=== PATIENT | female | born 1940 | race Caucasian/White ===

== ENCOUNTER 2017-01-09 14:43 | Inpatient (IN) | payer OTHER ==
[~2017-01-09] VITALS: Ht 149.9 cm; Wt 52.0 kg
[2017-01-09 15:27] LABS: HEMATOCRIT 46.1 % (36.0-46.0); MCH 29.1 PG (29.0-34.0); MCHC 34.1 G/DL (30.0-36.0); MCV 85.4 FL (83-99); MEAN PLAT.VOLUME 10.7 uM^3 (9.5-12.4); PLATELET COUNT 241 K/uL (156-360); RBC DIS.WIDTH-CV 13.1 % (11.8-14.6); RBC DIS.WIDTH-SD 40.7 % (39-53); WHITE BLOOD COUNT 16.5 K/uL (4.1-10.2)
[2017-01-09 15:45] LABS: CHLORIDE 101 mEq/L (99-109); POTASSIUM 4.5 mEq/L (3.7-5.4); SODIUM 139 mEq/L (136-147)
[2017-01-09 15:47] LABS: GLUCOSE 137 mg/dL (70-99)
[2017-01-09 15:48] LABS: ANION GAP 15 MEQ/L (2-14)
[2017-01-09 15:51] LABS: GFR ESTIMATE (CALCULATED) 57 mL/min/; UREA NITROGEN (BUN) 17 mg/dL (9-23)
[2017-01-09 18:22] LABS: TROP-I INTERPRETATION NEGATIVE; TROPONIN-I 0.04 ng/mL (0.0-0.30)
[2017-01-09] MEDS ORDERED: ADVAIR HFA120 INHAL1 IH (20:36)
[2017-01-09] MEDS ORDERED: LISINOPRIL40 MG PO (20:36)
[2017-01-09] MEDS ORDERED: PROAIR RESPICL90 MCG IH (20:36)
[2017-01-09] MEDS ORDERED: FUROSEMIDE20 MG PO (20:36)
[2017-01-09] MEDS ORDERED: SIMVASTATIN80 MG PO (20:36)
[2017-01-09] MEDS ORDERED: SPIRIVA RESPIMAT4 GM IH (20:36)
[2017-01-09] MEDS ORDERED: LO-DOSE ASPIRIN81 M2 PO (20:37)
[2017-01-09] MEDS ORDERED: METFORMIN HCL500 M1 PO (20:37)
[2017-01-09 20:49] LABS: TOTAL BILIRUBIN 0.7 mg/dL (0.0-1.0)
[2017-01-09 20:50] LABS: ALKALINE PHOSPHATASE 74 IU/L (3-129)
[2017-01-09 20:51] LABS: CARBON DIOXIDE (BICARBONATE) 27.1 MEQ/L (20-31)
[2017-01-09 20:52] LABS: DIRECT BILIRUBIN 0.3 mg/dL (0.0-0.3)
[2017-01-09 23:20] VITALS: BP 100/63
[2017-01-10 04:11] VITALS: BP 102/56
[2017-01-10 04:39] LABS: ADD MIUA? YES; BILIRUBIN NEGATIVE; BLOOD SMALL; COLOR STRAW ((YELLOW)); GLUCOSE (STRIP) NEGATIVE; KETONES NEGATIVE; LEUKOCYTES TRACE; NITRITE NEGATIVE; PROTEIN (STRIP) NEGATIVE; SPECIFIC GRAVITY 1.005 (1.000-1.030); UROBILINOGEN 0.2 MG/DL (0.2-1.0)
[2017-01-10 04:56] LABS: BACTERIA NONE SEEN /HPF; EPITHELIAL CELLS RARE /HPF; MUCUS NONE SEEN /LPF; RED BLOOD CELLS 0-5 /HPF (0-5); UCUL ADDED? NO; WHITE BLOOD CELLS 0-5 /HPF (0-5)
[2017-01-10 08:09] VITALS: BP 113/67
[2017-01-10 12:43] VITALS: BP 101/58
[2017-01-10 16:13] VITALS: BP 99/55
[2017-01-10 21:41] VITALS: BP 103/56
[2017-01-11 00:10] VITALS: BP 114/52
[2017-01-11 04:20] VITALS: BP 90/52
[2017-01-11 06:14] LABS: ANION GAP 9 MEQ/L (2-14); CHLORIDE 100 MEQ/L (99-109); GFR ESTIMATE (CALCULATED) > 59 mL/min/; GLUCOSE 103 mg/dL (70-99); SAMPLE HEMOLYSIS CHECK 0; SAMPLE ICTERIC CHECK 0; SAMPLE LIPEMIA CHECK 0; SODIUM 136 MEQ/L (136-147); UREA NITROGEN (BUN) 26 mg/dL (9-23)
[2017-01-11 06:22] LABS: HEMATOCRIT 40.6 % (36.0-46.0); MCH 29.1 PG (29.0-34.0); MCHC 33.7 G/DL (30.0-36.0); MCV 86.4 FL (83-99); MEAN PLAT.VOLUME 11.4 uM^3 (9.5-12.4); PLATELET COUNT 204 K/uL (156-360); RBC DIS.WIDTH-CV 13.2 % (11.8-14.6); RBC DIS.WIDTH-SD 41.5 % (39-53)
[2017-01-11 07:54] VITALS: BP 113/52
[2017-01-11 08:09] LABS: POINT-OF-CARE METER ID UU13113698
[2017-01-11 12:48] VITALS: BP 95/53
[2017-01-11 20:20] VITALS: BP 101/60
[2017-01-11 21:46] LABS: POINT-OF-CARE METER ID UU13113698
[2017-01-11 23:15] VITALS: BP 102/56
[2017-01-12 04:24] VITALS: BP 101/57
[2017-01-12 07:12] VITALS: BP 137/62
[2017-01-12 08:27] LABS: POINT-OF-CARE METER ID UU13113698
[2017-01-12 12:07] LABS: POINT-OF-CARE METER ID UU13113698
[2017-01-12 12:41] VITALS: BP 103/53
[2017-01-12 16:23] VITALS: BP 96/54
[2017-01-12 17:04] LABS: POINT-OF-CARE METER ID UU13113698
[2017-01-12 19:11] VITALS: BP 87/51
[2017-01-12 23:23] VITALS: BP 92/67
[2017-01-13 03:37] VITALS: BP 110/61
[2017-01-13 05:50] LABS: EOSINOPHIL (%) 0.2 % (0-5); HEMATOCRIT 40.1 % (36.0-46.0); IMMATURE GRANULOCYTE (%) 0.5 % (0.0-0.7); IMMATURE GRANULOCYTE COUNT 0.1 K/uL; INSTRUMENT ABS NEUTROPHIL CT 6.5 K/uL; LYMPHOCYTE COUNT 2.2 K/uL (1.0-2.8); MCHC 33.4 G/DL (30.0-36.0); MCV 86.8 FL (83-99); MONOCYTE (%) 10.3 % (3-12); NEUTROPHIL (%) 66.6 % (45-76); NEUTROPHIL COUNT 6.5 K/uL (1.8-6.4); RBC DIS.WIDTH-CV 13.2 % (11.8-14.6); RBC DIS.WIDTH-SD 41.5 % (39-53); RED BLOOD COUNT 4.62 M/uL (3.80-5.20); WHITE BLOOD COUNT 9.8 K/uL (4.1-10.2)
[2017-01-13 06:04] LABS: ANION GAP 7 MEQ/L (2-14); CHLORIDE 102 MEQ/L (99-109); POTASSIUM 4.6 MEQ/L (3.7-5.4); SAMPLE HEMOLYSIS CHECK 0; SAMPLE ICTERIC CHECK 0; SAMPLE LIPEMIA CHECK 0; SODIUM 138 MEQ/L (136-147)
[2017-01-13 06:10] LABS: GFR ESTIMATE (CALCULATED) > 59 mL/min/; GLUCOSE 96 mg/dL (70-99); UREA NITROGEN (BUN) 31 mg/dL (9-23)
[2017-01-13 07:30] VITALS: BP 110/60
[2017-01-13 08:11] LABS: MEAN PLAT.VOLUME 11.9 uM^3 (9.5-12.4); PLAT.SUFFICIENCY ADEQUATE; PLATELET COUNT 195 K/uL (156-360)
[2017-01-13 11:01] LABS: POINT-OF-CARE METER ID UU13113698
[2017-01-13] MEDS ORDERED: CEFTIN500 MG PO (14:33)
[2017-01-13] MEDS ORDERED: NICORELIEF2 MG BC (14:34)
[2017-01-13] MEDS ORDERED: CARVEDILOL3.125 MG PO (14:34)
[2017-01-13] MEDS ORDERED: KLOR-CON M1010 MEQ PO (14:34)
[2017-01-13] MEDS ORDERED: PREDNISONE20 MG PO (14:40)
[2017-01-13] MEDS ORDERED: OXYGEN MC (16:05)
[2017-01-13 16:10] VITALS: BP 110/62
== END 2017-01-13 17:13 | disposition home health service (06) | DRG 291 ==
LOC: EME 14:43 → RME 14:43 → EDOF 20:31 → 4EAST 20:31 → ENPENDDIS 01-13 → 4EAST 01-13 17:13
PROVIDERS: Emergency Medicine; Hospitalist; Internal Medicine; Physician Assistant Medical
DX: I11.0 Hypertensive heart disease with heart failure (principal); I50.9 Heart failure, unspecified; J96.01 Acute respiratory failure with hypoxia; J44.1 Chronic obstructive pulmonary disease with (acute) exacerbation; I42.9 Cardiomyopathy, unspecified; R91.1 Solitary pulmonary nodule; K63.9 Disease of intestine, unspecified; E78.5 Hyperlipidemia, unspecified; E11.9 Type 2 diabetes mellitus without complications; D72.829 Elevated white blood cell count, unspecified; T38.0X5A Adverse effect of glucocorticoids and synthetic analogues, initial encounter; I73.9 Peripheral vascular disease, unspecified; E83.119 Hemochromatosis, unspecified; R32 Unspecified urinary incontinence; M19.90 Unspecified osteoarthritis, unspecified site; F17.210 Nicotine dependence, cigarettes, uncomplicated; Z79.82 Long term (current) use of aspirin; Z79.84 Long term (current) use of oral hypoglycemic drugs
CPT/HCPCS: 71020; 71250; 74176; 80048; 80076; 81003; 82803; 82948; 83605; 83735; 83880; 84484; 85025; 85027; 85379; 87040; 93005; 93306; 94640; 94640 76; 94799; 99202; 99281; 99285; J0696; J1650; J1815; J1940; J7040; J7050; J7512

== ENCOUNTER 2017-03-31 01:52 | Inpatient (IN) | payer OTHER ==
[~2017-03-31] VITALS: Ht 160 cm; Wt 53.9 kg
[2017-03-31] VITALS (19 sets, daily range): BP systolic 0–119; BP diastolic 0–70
[~2017-03-31 01:52] MED LIST: ADVAIR HFA120 INHAL1 IH; CARVEDILOL3.125 MG PO; CEFTIN500 MG PO; FUROSEMIDE20 MG PO; KLOR-CON M1010 MEQ PO; LISINOPRIL40 MG PO; LO-DOSE ASPIRIN81 M2 PO; METFORMIN HCL500 M1 PO; NICORELIEF2 MG BC; OXYGEN MC; PREDNISONE20 MG PO; PROAIR RESPICL90 MCG IH; SIMVASTATIN80 MG PO; SPIRIVA RESPIMAT4 GM IH
[2017-03-31 02:41] LABS: BASE EXCESS -2.5 mEq/L (-3 to +3); BICARBONATE 26.8 mEq/L (22-26); CARBOXY HGB 2.2 % (0-5); METHEMOGLOBIN 1.1 % (0-1.5); PCO2 67 mm Hg (35-45); PO2 80 mm Hg (80-100)
[2017-03-31 02:42] LABS: BASOPHIL COUNT 0.1 K/uL (0-0.1); EOSINOPHIL (%) 0.4 % (0-5); EOSINOPHIL COUNT 0.1 K/uL (0-0.3); HEMATOCRIT 39.3 % (36.0-46.0); IMMATURE GRANULOCYTE (%) 1.3 % (0.0-0.7); IMMATURE GRANULOCYTE COUNT 0.2 K/uL; INSTRUMENT ABS NEUTROPHIL CT 11.2 K/uL; LYMPHOCYTE COUNT 1.4 K/uL (1.0-2.8); MCHC 31.8 G/DL (30.0-36.0); MCV 88.1 FL (83-99); MONOCYTE (%) 5.7 % (3-12); MONOCYTE COUNT 0.8 K/uL (0-0.8); NEUTROPHIL COUNT 11.2 K/uL (1.8-6.4); RBC DIS.WIDTH-CV 13.2 % (11.8-14.6); RBC DIS.WIDTH-SD 42.8 % (39-53); RED BLOOD COUNT 4.46 M/uL (3.80-5.20); WHITE BLOOD COUNT 13.7 K/uL (4.1-10.2)
[2017-03-31 02:42] LABS: COMMENTS - BLOOD GASES C+; DEVICE VENT; FI02 60 %; MECHANICAL RATE 14 resp/min; MODE AC; PEEP 5 CM/H20; SITE LR; TIDAL VOLUME 400 ML; TOTAL RESP RATE 14 resp/min; pH 7.21 (7.35-7.45)
[2017-03-31 02:53] LABS: CHLORIDE 104 mEq/L (99-109); POTASSIUM 4.5 mEq/L (3.7-5.4); SODIUM 137 mEq/L (136-147)
[2017-03-31 02:55] LABS: GLUCOSE 356 mg/dL (70-99)
[2017-03-31 02:57] LABS: ANION GAP 9 MEQ/L (2-14)
[2017-03-31 02:59] LABS: GFR ESTIMATE (CALCULATED) 46 mL/min/
[2017-03-31 03:00] LABS: UREA NITROGEN (BUN) 33 mg/dL (9-23)
[2017-03-31 03:07] LABS: TROP-I INTERPRETATION NEGATIVE; TROPONIN-I 0.06 ng/mL (0.0-0.30)
[2017-03-31 03:26] LABS: MEAN PLAT.VOLUME 10.9 uM^3 (9.5-12.4); PLAT.SUFFICIENCY ADEQUATE; PLATELET COUNT 162 K/uL (156-360)
[2017-03-31 03:30] LABS: BASE EXCESS 0.3 mEq/L (-3 to +3); BICARBONATE 27.6 mEq/L (22-26); CARBOXY HGB 3.3 % (0-5); METHEMOGLOBIN 0.5 % (0-1.5); PCO2 56 mm Hg (35-45); PO2 69 mm Hg (80-100)
[2017-03-31 03:31] LABS: COMMENTS - BLOOD GASES C+; DEVICE VENT; FI02 60 %; MECHANICAL RATE 20 resp/min; MODE AC; PEEP 5 CM/H20; SITE LR; TIDAL VOLUME 400 ML; TOTAL RESP RATE 20 resp/min
[2017-03-31 04:44] LABS: BASE EXCESS 1.5 mEq/L (-3 to +3); BICARBONATE 26.6 mEq/L (22-26); CARBOXY HGB 2.6 % (0-5); METHEMOGLOBIN 0.6 % (0-1.5); PO2 72 mm Hg (80-100)
[2017-03-31 04:45] LABS: COMMENTS - BLOOD GASES C+; DEVICE VENT; FI02 60 %; MECHANICAL RATE 20 resp/min; MODE AC; PCO2 43 mm Hg (35-45); PEEP 5 CM/H20; SITE RR; TIDAL VOLUME 450 ML; TOTAL RESP RATE 20 resp/min
[2017-03-31 05:08] LABS: POINT-OF-CARE METER ID UU13113747
[2017-03-31 07:10] LABS: METH RESISTANT S AUREUS PCR NEGATIVE (NEGATIVE)
[2017-03-31 07:28] LABS: PROBE CHECK PASS; SPECIMEN PROCESSING CONTROL PASS
[2017-03-31 12:20] LABS: POINT-OF-CARE METER ID UU14314083
[2017-03-31 16:31] LABS: MAGNESIUM 1.6 mg/dl (1.3-2.7)
[2017-03-31 19:12] LABS: POINT-OF-CARE METER ID UU14314083
[2017-04-01] VITALS (24 sets, daily range): BP systolic 76–135; BP diastolic 41–93
[2017-04-01 00:52] LABS: POINT-OF-CARE METER ID UU13113731
[2017-04-01 06:29] LABS: POINT-OF-CARE METER ID UU14314082
[2017-04-01 08:11] LABS: MCH 28.6 PG (29.0-34.0); MCHC 33.6 G/DL (30.0-36.0); MCV 85.1 FL (83-99); MEAN PLAT.VOLUME 11.1 uM^3 (9.5-12.4); PLATELET COUNT 171 K/uL (156-360); RBC DIS.WIDTH-CV 13.8 % (11.8-14.6); RBC DIS.WIDTH-SD 42.6 % (39-53); RED BLOOD COUNT 3.88 M/uL (3.80-5.20); WHITE BLOOD COUNT 6.1 K/uL (4.1-10.2)
[2017-04-01 08:30] LABS: ANION GAP 14 MEQ/L (2-14); CHLORIDE 102 MEQ/L (99-109); SAMPLE HEMOLYSIS CHECK 0; SAMPLE ICTERIC CHECK 0; SAMPLE LIPEMIA CHECK 0; SODIUM 137 MEQ/L (136-147)
[2017-04-01 08:32] LABS: POTASSIUM 3.4 MEQ/L (3.7-5.4)
[2017-04-01 08:35] LABS: GFR ESTIMATE (CALCULATED) 24 mL/min/; GLUCOSE 301 mg/dL (70-99); UREA NITROGEN (BUN) 48 mg/dL (9-23)
[2017-04-01 12:31] LABS: POINT-OF-CARE METER ID UU14314082
[2017-04-01 15:23] LABS: ADD MIUA? YES; BILIRUBIN NEGATIVE; BLOOD MODERATE; COLOR YELLOW ((YELLOW)); GLUCOSE (STRIP) NEGATIVE; KETONES NEGATIVE; LEUKOCYTES NEGATIVE; NITRITE NEGATIVE; PROTEIN (STRIP) NEGATIVE; SPECIFIC GRAVITY 1.016 (1.000-1.030); UROBILINOGEN 0.2 MG/DL (0.2-1.0)
[2017-04-01 16:14] LABS: BACTERIA RARE /HPF; EPITHELIAL CELLS RARE /HPF; HYALINE CASTS 15-20 /LPF; MUCUS TRACE /LPF; RED BLOOD CELLS TNTC /HPF (0-5); URIC ACID CRYSTALS 2+ /HPF; WHITE BLOOD CELLS 0-5 /HPF (0-5)
[2017-04-01 17:50] LABS: POINT-OF-CARE METER ID UU14314082
[2017-04-02] VITALS (14 sets, daily range): BP systolic 103–138; BP diastolic 49–85
[2017-04-02 00:33] LABS: POINT-OF-CARE METER ID UU13113803
[2017-04-02 05:53] LABS: POINT-OF-CARE METER ID UU14314082
[2017-04-02 07:30] LABS: HEMATOCRIT 35.2 % (36.0-46.0); MCH 28.9 PG (29.0-34.0); MCV 87.6 FL (83-99); PLATELET COUNT 203 K/uL (156-360); RBC DIS.WIDTH-CV 14.2 % (11.8-14.6); RBC DIS.WIDTH-SD 45.3 % (39-53); RED BLOOD COUNT 4.02 M/uL (3.80-5.20); WHITE BLOOD COUNT 9.4 K/uL (4.1-10.2)
[2017-04-02 08:06] LABS: ANION GAP 15 MEQ/L (2-14); CHLORIDE 105 MEQ/L (99-109); GFR ESTIMATE (CALCULATED) 23 mL/min/; GLUCOSE 205 mg/dL (70-99); SAMPLE HEMOLYSIS CHECK 0; SAMPLE ICTERIC CHECK 0; SAMPLE LIPEMIA CHECK 0; SODIUM 141 MEQ/L (136-147); UREA NITROGEN (BUN) 55 mg/dL (9-23)
[2017-04-02 08:08] LABS: POTASSIUM 4.2 MEQ/L (3.7-5.4)
[2017-04-02 13:07] LABS: POINT-OF-CARE METER ID UU14314082
[2017-04-02 17:28] LABS: POINT-OF-CARE METER ID UU14314082
[2017-04-03] VITALS: BP 124/76
[2017-04-03 08:00] VITALS: BP 136/84
[2017-04-03 09:02] LABS: POINT-OF-CARE METER ID UU14314082
[2017-04-03 09:06] LABS: HEMATOCRIT 39.9 % (36.0-46.0); MCH 27.6 PG (29.0-34.0); MCHC 31.6 G/DL (30.0-36.0); MCV 87.3 FL (83-99); MEAN PLAT.VOLUME 11.1 uM^3 (9.5-12.4); PLATELET COUNT 250 K/uL (156-360); RBC DIS.WIDTH-CV 14.1 % (11.8-14.6); RBC DIS.WIDTH-SD 45.3 % (39-53); RED BLOOD COUNT 4.57 M/uL (3.80-5.20); WHITE BLOOD COUNT 8.8 K/uL (4.1-10.2)
[2017-04-03 09:47] LABS: ANION GAP 13 MEQ/L (2-14); CHLORIDE 106 MEQ/L (99-109); GFR ESTIMATE (CALCULATED) 36 mL/min/; GLUCOSE 254 mg/dL (70-99); POTASSIUM 4.7 MEQ/L (3.7-5.4); SAMPLE HEMOLYSIS CHECK 0; SAMPLE ICTERIC CHECK 0; SAMPLE LIPEMIA CHECK 0; SODIUM 143 MEQ/L (136-147); UREA NITROGEN (BUN) 56 mg/dL (9-23)
[2017-04-03 12:00] VITALS: BP 132/80
[2017-04-03 12:49] LABS: POINT-OF-CARE METER ID UU14314082
[2017-04-03 16:00] VITALS: BP 143/89
[2017-04-03 17:47] LABS: POINT-OF-CARE METER ID UU14314082
[2017-04-03 20:00] VITALS: BP 127/80
[2017-04-03 22:06] LABS: POINT-OF-CARE METER ID UU14314082
[2017-04-04] VITALS (9 sets, daily range): BP systolic 101–137; BP diastolic 53–83
[2017-04-04 05:01] LABS: EOSINOPHIL (%) 0 % (0-5); HEMATOCRIT 37.6 % (36.0-46.0); IMMATURE GRANULOCYTE (%) 0.7 % (0.0-0.7); IMMATURE GRANULOCYTE COUNT 0.1 K/uL; INSTRUMENT ABS NEUTROPHIL CT 6.1 K/uL; LYMPHOCYTE COUNT 0.6 K/uL (1.0-2.8); MCHC 32.2 G/DL (30.0-36.0); MEAN PLAT.VOLUME 11.2 uM^3 (9.5-12.4); MONOCYTE (%) 4.9 % (3-12); MONOCYTE COUNT 0.4 K/uL (0-0.8); NEUTROPHIL (%) 85.7 % (45-76); NEUTROPHIL COUNT 6.1 K/uL (1.8-6.4); PLATELET COUNT 218 K/uL (156-360); RBC DIS.WIDTH-CV 13.8 % (11.8-14.6); RBC DIS.WIDTH-SD 44.2 % (39-53); RED BLOOD COUNT 4.32 M/uL (3.80-5.20); WHITE BLOOD COUNT 7.2 K/uL (4.1-10.2)
[2017-04-04 05:14] LABS: CHLORIDE 106 mEq/L (99-109); POTASSIUM 4.8 mEq/L (3.7-5.4); SODIUM 143 mEq/L (136-147)
[2017-04-04 05:16] LABS: GLUCOSE 220 mg/dL (70-99)
[2017-04-04 05:17] LABS: ANION GAP 12 MEQ/L (2-14)
[2017-04-04 05:19] LABS: GFR ESTIMATE (CALCULATED) 39 mL/min/
[2017-04-04 05:20] LABS: UREA NITROGEN (BUN) 65 mg/dL (9-23)
[2017-04-04 13:10] LABS: POINT-OF-CARE METER ID UU13113748
[2017-04-04 16:48] LABS: POINT-OF-CARE METER ID UU14314082
[2017-04-04 18:36] LABS: POINT-OF-CARE METER ID UU13113774
[2017-04-04 21:22] LABS: POINT-OF-CARE METER ID UU13113725
[2017-04-05 02:34] VITALS: BP 90/55
[2017-04-05 06:01] LABS: POINT-OF-CARE METER ID UU13113725
[2017-04-05 07:44] VITALS: BP 105/58
[2017-04-05 09:11] LABS: ANION GAP 11 MEQ/L (2-14); CHLORIDE 99 MEQ/L (99-109); GFR ESTIMATE (CALCULATED) 51 mL/min/; GLUCOSE 225 mg/dL (70-99); POTASSIUM 4.1 MEQ/L (3.7-5.4); SAMPLE HEMOLYSIS CHECK 0; SAMPLE ICTERIC CHECK 0; SAMPLE LIPEMIA CHECK 0; SODIUM 142 MEQ/L (136-147); UREA NITROGEN (BUN) 53 mg/dL (9-23)
[2017-04-05 11:57] LABS: POINT-OF-CARE METER ID UU13113774
[2017-04-05 13:01] VITALS: BP 130/70
[2017-04-05 15:27] VITALS: BP 112/52
[2017-04-05 16:17] LABS: POINT-OF-CARE METER ID UU13113725
[2017-04-05 20:30] VITALS: BP 90/68
[2017-04-05 21:34] LABS: POINT-OF-CARE METER ID UU13113725
[2017-04-05 21:56] VITALS: BP 90/68
[2017-04-06] VITALS (9 sets, daily range): BP systolic 86–107; BP diastolic 45–65
[2017-04-06 06:23] LABS: POINT-OF-CARE METER ID UU13113774
[2017-04-06 11:07] LABS: ANION GAP 10 MEQ/L (2-14); CHLORIDE 95 MEQ/L (99-109); POTASSIUM 3.6 MEQ/L (3.7-5.4); SAMPLE HEMOLYSIS CHECK 0; SAMPLE ICTERIC CHECK 0; SAMPLE LIPEMIA CHECK 0; SODIUM 139 MEQ/L (136-147)
[2017-04-06 11:13] LABS: GFR ESTIMATE (CALCULATED) 57 mL/min/; GLUCOSE 291 mg/dL (70-99); UREA NITROGEN (BUN) 53 mg/dL (9-23)
[2017-04-06 11:49] LABS: POINT-OF-CARE METER ID UU13113725
[2017-04-06 15:42] LABS: MAGNESIUM 1.8 mg/dl (1.3-2.7); POTASSIUM 3.9 MEQ/L (3.7-5.4)
[2017-04-06 16:19] LABS: POINT-OF-CARE METER ID UU13113725
[2017-04-06 23:34] LABS: POINT-OF-CARE METER ID UU13113725
[2017-04-07 03:10] VITALS: BP 89/51
[2017-04-07 05:56] LABS: POINT-OF-CARE METER ID UU13113725
[2017-04-07 07:01] LABS: ANION GAP 11 MEQ/L (2-14); CHLORIDE 99 MEQ/L (99-109); GFR ESTIMATE (CALCULATED) > 59 mL/min/; GLUCOSE 224 mg/dL (70-99); POTASSIUM 3.6 MEQ/L (3.7-5.4); SAMPLE HEMOLYSIS CHECK 0; SAMPLE ICTERIC CHECK 0; SAMPLE LIPEMIA CHECK 0; SODIUM 140 MEQ/L (136-147); UREA NITROGEN (BUN) 49 mg/dL (9-23)
[2017-04-07 07:41] VITALS: BP 105/51
[2017-04-07] MEDS ORDERED: ASCORBIC ACID500 M3 PO (10:59)
[2017-04-07] MEDS ORDERED: ENTRESTO 24 MG1 EACH PO (10:59)
[2017-04-07] MEDS ORDERED: DUONEB 2.5-0.5 M3 ML AEROSOL ×2 (10:59→11:17)
[2017-04-07] MEDS ORDERED: VITAMIN D2000 UNI1 PO (10:59)
[2017-04-07] MEDS ORDERED: PREDNISONE10 MG PO (10:59)
[2017-04-07] MEDS ORDERED: AMOX TR-K CLV1 EAC3 PO (10:59)
[2017-04-07] MEDS ORDERED: THERAGRAN1 TABLET PO (10:59)
[2017-04-07 11:17] LABS: POINT-OF-CARE METER ID UU13113725
[2017-04-07 12:03] VITALS: BP 93/54
== END 2017-04-07 12:13 | disposition home or self-care (01) | DRG 208 ==
LOC: EME → EDBD 01:52 → EME 01:52 → 4WEST 04:24 → EDOF 04:24 → ENRESERV 04:26 → 4WEST 05:34 → CANRESERV 04-02 12:48 → ENRESERV 04-02 12:48 → 4WEST 04-02 13:03 → ENRESERV 04-04 13:52 → 5EAST 04-04 16:55
PROVIDERS: Emergency Medicine; Hospitalist; Internal Medicine Critical Care Medicine; Nurse Practitioner Family
DX: J96.22 Acute and chronic respiratory failure with hypercapnia (principal); N17.0 Acute kidney failure with tubular necrosis; J44.0 Chronic obstructive pulmonary disease with (acute) lower respiratory infection; I50.23 Acute on chronic systolic (congestive) heart failure; J18.9 Pneumonia, unspecified organism; J44.1 Chronic obstructive pulmonary disease with (acute) exacerbation; I42.0 Dilated cardiomyopathy; I73.9 Peripheral vascular disease, unspecified; E87.2 Acidosis; R60.0 Localized edema; Z99.81 Dependence on supplemental oxygen; E78.5 Hyperlipidemia, unspecified; R91.1 Solitary pulmonary nodule; Z79.4 Long term (current) use of insulin; F17.200 Nicotine dependence, unspecified, uncomplicated; K63.9 Disease of intestine, unspecified; E11.9 Type 2 diabetes mellitus without complications; I50.84 End stage heart failure; R26.9 Unspecified abnormalities of gait and mobility; J96.21 Acute and chronic respiratory failure with hypoxia; I25.5 Ischemic cardiomyopathy; E86.1 Hypovolemia; I11.0 Hypertensive heart disease with heart failure; I27.81 Cor pulmonale (chronic); I95.9 Hypotension, unspecified
CPT/HCPCS: 36600; 71010; 80048; 81003; 82306; 82803; 82948; 83605; 83735; 83880; 84100; 84132 91; 84484; 85025; 85027; 87040; 87070; 87205; 87641; 93005; 94002; 94003; 94640; 94640 76; 94644; 94760; 94799; 97530 GO; 99202; 99281; 99285; J0295; J0456; J1100; J1650; J1815; J1940; J1956; J2250; J2920; J7030; J7040; J7050; J7512

== ENCOUNTER 2017-05-09 18:00 | Emergency (ER) | payer OTHER ==
[~2017-05-09] VITALS: Ht 149.9 cm; Wt 51.3 kg
[~2017-05-09 18:00] MED LIST changes: +AMOX TR-K CLV1 EAC3 PO; +ASCORBIC ACID500 M3 PO; +DUONEB 2.5-0.5 M3 ML AEROSOL; +ENTRESTO 24 MG1 EACH PO; +PREDNISONE10 MG PO; +THERAGRAN1 TABLET PO; +VITAMIN D2000 UNI1 PO
[2017-05-09 19:06] LABS: HEMATOCRIT 39.8 % (36.0-46.0); MCHC 32.7 G/DL (30.0-36.0); MCV 85.6 FL (83-99); PLATELET COUNT 388 K/uL (156-360); RBC DIS.WIDTH-CV 13.5 % (11.8-14.6); RBC DIS.WIDTH-SD 41.9 % (39-53); RED BLOOD COUNT 4.65 M/uL (3.80-5.20); WHITE BLOOD COUNT 8.8 K/uL (4.1-10.2)
[2017-05-09 19:17] LABS: CHLORIDE 99 mEq/L (99-109); POTASSIUM 4.1 mEq/L (3.7-5.4); SODIUM 140 mEq/L (136-147)
[2017-05-09 19:18] LABS: GLUCOSE 253 mg/dL (70-99)
[2017-05-09 19:20] LABS: ANION GAP 14 MEQ/L (2-14)
[2017-05-09 19:22] LABS: GFR ESTIMATE (CALCULATED) 57 mL/min/
[2017-05-09 19:23] LABS: UREA NITROGEN (BUN) 19 mg/dL (9-23)
[2017-05-09 19:29] LABS: TROP-I INTERPRETATION NEGATIVE; TROPONIN-I 0.06 ng/mL (0.0-0.30)
[2017-05-09 20:57] LABS: Estimated Average Glucose 151 mg/dL (70-123); HEMOGLOBIN A1c (GLYCOHEMOGLOB) 6.9 % HGB (Below 5.7)
[2017-05-09] MEDS ORDERED: AUGMENTIN875 MG PO (21:22)
[2017-05-09] MEDS ORDERED: PREDNISONE20 MG PO (21:22)
[2017-05-09 22:31] VITALS: BP 108/70
== END 2017-05-09 22:31 | disposition home or self-care (01) ==
LOC: EME 18:00
DX: J44.1 Chronic obstructive pulmonary disease with (acute) exacerbation (principal); J20.9 Acute bronchitis, unspecified; J44.0 Chronic obstructive pulmonary disease with (acute) lower respiratory infection; I11.0 Hypertensive heart disease with heart failure; I50.9 Heart failure, unspecified; E11.9 Type 2 diabetes mellitus without complications; Z79.84 Long term (current) use of oral hypoglycemic drugs; E78.5 Hyperlipidemia, unspecified; Z87.891 Personal history of nicotine dependence; Z79.82 Long term (current) use of aspirin
CPT/HCPCS: 71020; 80048; 83036; 84484; 85027; 93005; 94640; 99281; 99284; J7512

== ENCOUNTER 2017-05-11 02:27 | Inpatient (IN) | payer OTHER ==
[~2017-05-11] VITALS: Ht 149.9 cm; Wt 53.2 kg
[2017-05-11] VITALS (19 sets, daily range): BP systolic 75–147; BP diastolic 50–121
[~2017-05-11 02:27] MED LIST changes: +AUGMENTIN875 MG PO
[2017-05-11 03:14] LABS: BASE EXCESS -4.1 mEq/L (-3 to +3); CARBOXY HGB 2.2 % (0-5); METHEMOGLOBIN 0.6 % (0-1.5); PCO2 50 mm Hg (35-45); PO2 84 mm Hg (80-100); SITE RR; pH 7.27 (7.35-7.45)
[2017-05-11 03:15] LABS: COMMENTS - BLOOD GASES A+C+; DEVICE MASK VENT; FI02 50 %; MODE SPONT; PEEP 5 CM/H20; PRES. SUPPORT 10 CM/H2O; TOTAL RESP RATE 24 resp/min
[2017-05-11 03:18] LABS: EOSINOPHIL (%) 0 % (0-5); HEMATOCRIT 37.9 % (36.0-46.0); IMMATURE GRANULOCYTE (%) 2.3 % (0.0-0.7); IMMATURE GRANULOCYTE COUNT 0.3 K/uL; INSTRUMENT ABS NEUTROPHIL CT 12.5 K/uL; LYMPHOCYTE COUNT 0.6 K/uL (1.0-2.8); MCH 27.7 PG (29.0-34.0); MCHC 31.4 G/DL (30.0-36.0); MCV 88.1 FL (83-99); MEAN PLAT.VOLUME 10.6 uM^3 (9.5-12.4); MONOCYTE (%) 3.9 % (3-12); MONOCYTE COUNT 0.6 K/uL (0-0.8); NEUTROPHIL (%) 89.4 % (45-76); NEUTROPHIL COUNT 12.5 K/uL (1.8-6.4); PLATELET COUNT 437 K/uL (156-360); RBC DIS.WIDTH-CV 13.4 % (11.8-14.6); RBC DIS.WIDTH-SD 43.7 % (39-53)
[2017-05-11 03:29] LABS: CHLORIDE 99 mEq/L (99-109); SODIUM 133 mEq/L (136-147)
[2017-05-11 03:32] LABS: ANION GAP 13 MEQ/L (2-14)
[2017-05-11 03:38] LABS: TROP-I INTERPRETATION NEGATIVE; TROPONIN-I 0.06 ng/mL (0.0-0.30)
[2017-05-11 03:43] LABS: GFR ESTIMATE (CALCULATED) 31 mL/min/; GLUCOSE 602 mg/dL (70-99); UREA NITROGEN (BUN) 46 mg/dL (9-23)
[2017-05-11 05:19] LABS: CREATININE 1.3 mg/dL (0.6-1.3); POTASSIUM 4.4 mEq/L (3.7-5.4)
[2017-05-11 08:02] LABS: POINT-OF-CARE METER ID UU14174217
[2017-05-11 08:50] LABS: METH RESISTANT S AUREUS PCR NEGATIVE (NEGATIVE)
[2017-05-11 08:51] LABS: PROBE CHECK PASS; SPECIMEN PROCESSING CONTROL PASS
[2017-05-11 10:58] LABS: POINT-OF-CARE METER ID UU13113747
[2017-05-11] MEDS ORDERED: FUROSEMIDE40 MG PO (11:46)
[2017-05-11 12:42] LABS: POINT-OF-CARE METER ID UU14174217; POINT-OF-CARE USER ID 612031313
[2017-05-11 18:15] LABS: POINT-OF-CARE METER ID UU14174217; POINT-OF-CARE USER ID 612031313
[2017-05-12] VITALS (23 sets, daily range): BP systolic 62–99; BP diastolic 41–68
[2017-05-12 00:26] LABS: POINT-OF-CARE METER ID UU13113748
[2017-05-12 06:01] LABS: POINT-OF-CARE METER ID UU14162636
[2017-05-12 10:58] LABS: HEMATOCRIT 35.8 % (36.0-46.0); MCH 28.3 PG (29.0-34.0); MCHC 31.8 G/DL (30.0-36.0); MCV 88.8 FL (83-99); MEAN PLAT.VOLUME 11.1 uM^3 (9.5-12.4); PLATELET COUNT 336 K/uL (156-360); RBC DIS.WIDTH-CV 13.8 % (11.8-14.6); RBC DIS.WIDTH-SD 44.8 % (39-53); RED BLOOD COUNT 4.03 M/uL (3.80-5.20)
[2017-05-12 11:25] LABS: ANION GAP 12 MEQ/L (2-14); CHLORIDE 102 MEQ/L (99-109); GFR ESTIMATE (CALCULATED) > 59 mL/min/; GLUCOSE 308 mg/dL (70-99); POTASSIUM 4.5 MEQ/L (3.7-5.4); SAMPLE HEMOLYSIS CHECK 0; SAMPLE ICTERIC CHECK 0; SAMPLE LIPEMIA CHECK 0; SODIUM 140 MEQ/L (136-147); UREA NITROGEN (BUN) 42 mg/dL (9-23)
[2017-05-12 12:04] LABS: POINT-OF-CARE METER ID UU13113803
[2017-05-12 17:36] LABS: POINT-OF-CARE METER ID UU14174217
[2017-05-12 23:58] LABS: POINT-OF-CARE METER ID UU14174217
[2017-05-13] VITALS (28 sets, daily range): BP systolic 0–107; BP diastolic 0–71
[2017-05-13 05:44] LABS: EOSINOPHIL (%) 0 % (0-5); HEMATOCRIT 37.2 % (36.0-46.0); IMMATURE GRANULOCYTE (%) 1.1 % (0.0-0.7); IMMATURE GRANULOCYTE COUNT 0.1 K/uL; INSTRUMENT ABS NEUTROPHIL CT 11.1 K/uL; LYMPHOCYTE COUNT 0.8 K/uL (1.0-2.8); MCH 27.6 PG (29.0-34.0); MCHC 31.7 G/DL (30.0-36.0); MCV 87.1 FL (83-99); MONOCYTE (%) 6.8 % (3-12); MONOCYTE COUNT 0.9 K/uL (0-0.8); NEUTROPHIL (%) 85.7 % (45-76); NEUTROPHIL COUNT 11.1 K/uL (1.8-6.4); PLATELET COUNT 345 K/uL (156-360); RBC DIS.WIDTH-CV 13.6 % (11.8-14.6); RBC DIS.WIDTH-SD 43.4 % (39-53); RED BLOOD COUNT 4.27 M/uL (3.80-5.20); WHITE BLOOD COUNT 12.9 K/uL (4.1-10.2)
[2017-05-13 05:52] LABS: POINT-OF-CARE METER ID UU14174217
[2017-05-13 06:56] LABS: ANION GAP 12 MEQ/L (2-14); CHLORIDE 104 MEQ/L (99-109); GFR ESTIMATE (CALCULATED) > 59 mL/min/; GLUCOSE 177 mg/dL (70-99); MAGNESIUM 1.9 mg/dl (1.3-2.7); POTASSIUM 4.1 MEQ/L (3.7-5.4); SAMPLE HEMOLYSIS CHECK 0; SAMPLE ICTERIC CHECK 0; SAMPLE LIPEMIA CHECK 0; SODIUM 141 MEQ/L (136-147); UREA NITROGEN (BUN) 41 mg/dL (9-23)
[2017-05-13 12:28] LABS: POINT-OF-CARE METER ID UU14174217
[2017-05-13 17:22] LABS: POINT-OF-CARE METER ID UU14314082
[2017-05-13 21:49] LABS: POINT-OF-CARE METER ID UU14208751
[2017-05-14] VITALS (23 sets, daily range): BP systolic 69–109; BP diastolic 44–75
[2017-05-14 06:41] LABS: HEMATOCRIT 36.7 % (36.0-46.0); MCHC 31.3 G/DL (30.0-36.0); MCV 86.2 FL (83-99); MEAN PLAT.VOLUME 10.7 uM^3 (9.5-12.4); PLATELET COUNT 389 K/uL (156-360); RBC DIS.WIDTH-CV 13.7 % (11.8-14.6); RBC DIS.WIDTH-SD 42.5 % (39-53); RED BLOOD COUNT 4.26 M/uL (3.80-5.20); WHITE BLOOD COUNT 10.6 K/uL (4.1-10.2)
[2017-05-14 07:06] LABS: ANION GAP 11 MEQ/L (2-14); CHLORIDE 99 MEQ/L (99-109); GFR ESTIMATE (CALCULATED) 51 mL/min/; GLUCOSE 299 mg/dL (70-99); POTASSIUM 3.9 MEQ/L (3.7-5.4); SAMPLE HEMOLYSIS CHECK 0; SAMPLE ICTERIC CHECK 0; SAMPLE LIPEMIA CHECK 0; SODIUM 138 MEQ/L (136-147); UREA NITROGEN (BUN) 43 mg/dL (9-23)
[2017-05-14 07:07] LABS: MAGNESIUM 2.2 mg/dl (1.3-2.7)
[2017-05-14 11:15] LABS: POINT-OF-CARE METER ID UU14314082
[2017-05-14 16:30] LABS: POINT-OF-CARE METER ID UU14174217
[2017-05-14 22:08] LABS: POINT-OF-CARE METER ID UU14174217
[2017-05-15] VITALS (12 sets, daily range): BP systolic 74–106; BP diastolic 52–78
[2017-05-15 08:49] LABS: POINT-OF-CARE METER ID UU14314083
[2017-05-15 11:12] LABS: POINT-OF-CARE METER ID UU14314083
[2017-05-15 15:56] LABS: PROTHROMBIN TIME 11.8 SEC (10.2-12.9)
[2017-05-15 18:09] LABS: POINT-OF-CARE METER ID UU14314083
[2017-05-15 21:57] LABS: POINT-OF-CARE METER ID UU14208751
[2017-05-16] VITALS (7 sets, daily range): BP systolic 91–123; BP diastolic 53–76
[2017-05-16 09:18] LABS: POINT-OF-CARE METER ID UU13113803
[2017-05-16 12:45] LABS: POINT-OF-CARE METER ID UU14208751
[2017-05-16 17:55] LABS: POINT-OF-CARE METER ID UU14188625
[2017-05-16 22:11] LABS: POINT-OF-CARE METER ID UU13113717
[2017-05-17] VITALS: BP 87/54
[2017-05-17 04:11] VITALS: BP 99/54
[2017-05-17 06:44] LABS: POINT-OF-CARE METER ID UU14174225
[2017-05-17 07:15] VITALS: BP 89/51
[2017-05-17 11:14] VITALS: BP 115/71
[2017-05-17] MEDS ORDERED: ELIQUIS5 MG PO (11:56)
[2017-05-17] MEDS ORDERED: CARVEDILOL3.125 MG PO (11:58)
[2017-05-17] MEDS ORDERED: PREDNISONE20 MG PO (12:04)
[2017-05-17] MEDS ORDERED: LEVAQUIN500 MG PO (12:07)
[2017-05-17 12:17] LABS: POINT-OF-CARE METER ID UU13113717
== END 2017-05-17 13:21 | disposition home health service (06) | DRG 189 ==
LOC: EME → EDBD 02:27 → EME 02:27 → EDOF 06:34 → 4WEST 06:34 → ENRESERV 06:36 → EDOF 06:53 → 4WEST 07:15 → ENRESERV 05-16 14:51 → 5SOUTH 05-16 16:29 → ENPENDDIS 05-17 → 5SOUTH 05-17 13:21
PROVIDERS: Emergency Medicine; Hospitalist; Internal Medicine Cardiovascular Disease; Internal Medicine Critical Care Medicine; Surgery
DX: J96.22 Acute and chronic respiratory failure with hypercapnia (principal); J44.1 Chronic obstructive pulmonary disease with (acute) exacerbation; J44.0 Chronic obstructive pulmonary disease with (acute) lower respiratory infection; J20.9 Acute bronchitis, unspecified; I13.0 Hypertensive heart and chronic kidney disease with heart failure and stage 1 through stage 4 chronic kidney disease, or unspecified chronic kidney disease; I50.23 Acute on chronic systolic (congestive) heart failure; N18.9 Chronic kidney disease, unspecified; I95.89 Other hypotension; R91.8 Other nonspecific abnormal finding of lung field; I08.1 Rheumatic disorders of both mitral and tricuspid valves; I27.20 Pulmonary hypertension, unspecified; I25.5 Ischemic cardiomyopathy; I42.0 Dilated cardiomyopathy; I47.1 Supraventricular tachycardia; I48.0 Paroxysmal atrial fibrillation; I48.2 Chronic atrial fibrillation; I25.10 Atherosclerotic heart disease of native coronary artery without angina pectoris; E78.5 Hyperlipidemia, unspecified; M19.90 Unspecified osteoarthritis, unspecified site; Z79.01 Long term (current) use of anticoagulants; F17.200 Nicotine dependence, unspecified, uncomplicated; Z79.84 Long term (current) use of oral hypoglycemic drugs
CPT/HCPCS: 36600; 71010; 71020; 80047; 80048; 82803; 82948; 83036; 83605; 83735; 83880; 84100; 84484; 85025; 85027; 85610; 85730; 87040; 87641; 93005; 94002; 94640; 94640 76; 94644; 94760; 94799; 97530 GO; 97530 GP; 99202; 99281; 99284; 99285; C1751; C1753; J0696; J1100; J1160; J1650; J1720; J1815; J1940; J2060; J2405; J2920; J3010; J3475; J7030; J7050; J7512; J7644